=== PATIENT | female | born 1980 | race Caucasian/White ===

== ENCOUNTER 2022-01-23 16:13 | Emergency (ER) | payer OTHER, SELFPAY ==
--- NOTE | ~2022-01-23 | XR_ITS ---
EXAMINATION: XR CHEST CLINICAL INFORMATION: Chest pain. COMPARISON: 12/22/2018 chest radiographs. TECHNIQUE: 2 views of the chest were obtained. FINDINGS: No significant abnormality is noted involving the heart, lungs, mediastinum, bony thorax or soft tissues. XR/XR chest 2V IMPRESSION: No acute cardiopulmonary process.
--- NOTE | ~2022-01-23 | CT_ITS ---
EXAMINATION: CT ANGIOGRAM OF THE CHEST WITH AND WITHOUT CONTRAST (CT PULMONARY ANGIOGRAM FOR PE) CLINICAL INFORMATION: Reason for Exam elevated d dimer, cp, palpitations COMPARISON: None TECHNIQUE: Prior to contrast administration, noncontrast localization images were obtained. Subsequently, multidetector volumetric imaging was performed from the thoracic inlet to below the diaphragms following the administration of 69 mL Omnipaque 350 intravenous contrast. No contrast reaction reported Sagittal, coronal, and MIP oblique sagittal reformatted images were obtained on the CT workstation, uploaded to PACS, and reviewed. This CT examination was performed using dose optimization techniques as appropriate, variously including the following: *Automated exposure control *Adjustment of mA and/or kV according to patient size (this includes techniques or standardized protocols for targeted exams where dose is matched to indication/reason for exam; i.e. extremities or head) *Use of iterative reconstruction technique Total exam dose-length product 409 mGy-cm FINDINGS: QUALITY OF STUDY/CONTRAST BOLUS: Satisfactory. PULMONARY ARTERIES: No central or or segmental pulmonary embolus. Central pulmonary trunk is normal caliber measuring 2.4 cm in diameter. THORACIC AORTA: No aneurysm or dissection. LUNG: No airspace consolidation. No suspicious pulmonary nodule or mass. Minimal hazy dependent atelectasis. No pneumothorax. Central airways are clear. PLEURA: No pleural effusion or pneumothorax. MEDIASTINUM: No cardiomegaly or pericardial effusion. No mediastinal or hilar lymphadenopathy. No evidence of septal bowing or right heart strain. CHEST WALL/AXILLA: No axillary or internal mammary lymphadenopathy. OSSEOUS STRUCTURES: No acute or suspicious osseous abnormality. UPPER ABDOMEN: Unremarkable. No reflux of contrast into the hepatic veins to suggest elevated right heart pressures. CT/CT angio chest PE protocol IMPRESSION: 1. No evidence of pulmonary embolus. 2. No airspace consolidation or effusions. VTE: negative
--- NOTE | 2022-01-23 16:15 | ECG_ITS ---
Test Reason : PALPITATIONS Blood Pressure : / mmHG Vent. Rate : 107 BPM Atrial Rate : 107 BPM P-R Int : 126 ms QRS Dur : 096 ms QT Int : 338 ms P-R-T Axes : 063 045 022 degrees QTc Int : 451 ms Sinus tachycardia Incomplete right bundle branch block Borderline ECG When compared with ECG of 15-JUL-2019 20:26, No significant change was found Referred By: Generic ED Physician Electronically Signed By:Beot Bird
[2022-01-23 16:21] VITALS: BP 135/81; PULSE 109; RESP 20; TEMP 36.9; O2SAT 98; BMI 36.1
--- NOTE | 2022-01-23 16:51 | ED_ITS ---
HPI - Chest Pain General Chief Complaint: Chest Pain Stated Complaint: heart palpitations/dizziness Time Seen by Provider: 01/23/22 16:46 Source: patient and family Mode of arrival: ambulatory Limitations: no limitations History of Present Illness HPI narrative: 41 yo female with history of fibromyalgia, sinus tachycardia, COPD, PTSD, anxiety, GERD, seasonal allergies here with complaints of palpitations since wednesday after having covid booster shot ([employer](TM) by [employer]). Had palpitations with previous covid vaccinations. Palpitations are constant both at rest and with exertion. Feels like fluttering sensation. She is also having intermittent left sided chest pain described as sharp worsened with movement of left arm, deep breathing, movement of trunk. Chronic SOB and cough unchanged from previous. No fever, leg pain/leg swelling. Long standing history of palpitations. Has seen cardiology multiple times in the past. Had [address], recent holter 06/2021-no daily medications. No control/estrogen use +smoker No recent travel or sick contact Related Data Allergies Allergy/AdvReac Type Severity Reaction Status Date / Time amoxicillin [AMOXICILLIN] Allergy Severe RASH, SOB Unverified 04/25/20 16:15 citalopram Allergy Rash Verified 01/23/22 18:21 Penicillins Allergy Rash Verified 01/23/22 18:21 sulfamethoxazole Allergy Rash Verified 01/23/22 18:21 [From Sulfamethoxazole-Trimethoprim] trimethoprim Allergy Rash Verified 01/23/22 18:21 [From Sulfamethoxazole-Trimethoprim] From [facility] Allergy Severe CARDIAC Uncoded 04/25/20 16:15 ARREST SOME ANTIBITOCS Allergy Mild HIVES Uncoded 04/25/20 16:15 Review of Systems Review of Systems: Yes all other systems are reviewed and are negative Constitutional: Constitutional: Reports no additional constitutional complaints, Denies body ache(s), Denies chills, Denies fever(s), Denies headache(s) and Denies weakness Eyes: Eyes: Reports no additional eye complaints and Denies change in vision ENT: Reports system reviewed and no additional complaints, except as documented, Denies dizziness, Denies headache(s), Denies nasal congestion, Denies nasal discharge and Denies neck pain Cardiovascular: Cardiovascular: Reports no additional cardiovascular complaint s, Reports chest pain, Denies leg edema, Reports palpitations and Reports dyspnea Respiratory: Respiratory: Reports no additional respiratory complaints, Reports cough and Reports dyspnea Gastrointestinal: Gastrointestinal: Reports no additional gastrointestinal complaints, Denies abdominal pain, Denies diarrhea, Denies nausea and Denies vomiting Genitourinary: Genitourinary: Reports no additional female genitourinary complaints and Denies urinary incontinence Musculoskeletal: Musculoskeletal: Reports no additional musculoskeletal complaints, Denies back pain, Denies arthralgias, Denies joint swelling, Denies neck pain, Denies numbness and Denies tingling Integumentary/Breasts: Skin/Breast: Reports system reviewed and no additional complaints, except as docu and Denies rash Neurologic: Denies Abnormal speech present, Denies dizziness, Denies headache(s), Denies numbness, Denies tingling and Denies weakness Endocrine: Endocrine: Reports palpitations PMFSH Past Medical History Attestation statement: The following information was validated with the patient. Source: old records reviewed and nursing notes reviewed Social History Social History Advance Directives: No Advance Directives Information Provided: No Physical Exam Vital Signs: Vital Signs: Last Vital Signs Temp 98.4 F 01/23/22 20:00 Pulse 86 01/23/22 20:00 Resp 16 01/23/22 20:00 BP 103/60 01/23/22 20:00 Pulse Ox 98 01/23/22 20:00 O2 Del Method 01/23/22 20:00 BMI result Body Mass Index 36.1 Const: General: cooperative, healthy appearing, comfortable and no acute distress Orientation/consciousness: patient oriented x3 Limitations: no limitations HEENT: Head: Yes normal to inspection Ears: hearing grossly normal bilaterally General nose exam: Normal external nose present Face and sinus: Yes normal facial exam Mouth: Normal oral and palatal mucosa present Throat: Yes posterior oropharynx normal Eyes: General: appearance normal, both eyes and all related structures Pupils: Equal, round and reactive pupils present Neck: Neck: Yes normal visual inspection Chest: Chest palpation & inspection: normal inspection of the chest Resp: Effort & Inspection: normal respiratory effort Auscultation: clear to auscultation bilaterally Cardio: Rate: regular rate (rate 91 in room) Rhythm: regular rhythm Peripheral pulses: Peripheral pulses 2+ throughout GI: Inspection: Yes normal to inspection Palpation (GI): Soft to palpation and nontender Auscultation: normal bowel sounds Back/Spine/Pelvis: Thoracic/Lumbar Spine: thoracic and lumbar spine normal to inspection Skin: General skin exam: no rashes or lesions noted Neuro: General: patient oriented x3, no focal motor deficits and normal sensation to monofilament Cranial nerves: Yes Equal, round and reactive pupils present Cognition (Neuro): normal cognition Speech: No Abnormal speech present Gait exam (Neuro): Normal gait present Motor exam (neuro): 5/5 motor strength present throughout Extrem: General: Yes normal to inspection, Yes no pedal edema and Yes no calf tenderness Course Course Course Narrative: 1914- patient tells me she has chronic leukocytosis. This leukocytosis is unchanged from her previous per patient. I do not have any available for comparison here. Her D-dimer is elevated due to reports of pleuritic chest pain, palpitations, tachycardia due to consider PE. Will check CTA to rule out. Reevaluation(s) Reevaluation #1: CTA negative for PE. heart rate now 80s. Plan for discharge home with primary care follow-up. Reviewed worrisome signs and symptoms of when to return to the emergency department. Comfortable discharge home. Time: 21:00 MDM - Chest Pain MDM Narrative Medical decision making narrative: 41-year-old female with a longstanding history of palpitations since 2010 here with worsening palpitations since receiving a COVID vaccination booster on Wednesday. Patient also reports some intermittent sharp reproducible chest pain associated with this. Will check EKG, labs, chest x-ray - Less likely ACS with symptoms for several days with negative troponin and EKG. Differential Diagnosis Differential diagnosis: Likely atypical chest pain Differential diagnosis: pe, thyroid, myocarditis, ST Medical Records Data Attestation: I reviewed the patient's medical records. Lab Data Attestation: I reviewed the patient's lab results. Result diagrams: 01/23/22 17:22 01/23/22 18:48 Labs: Lab Results 01/23/22 01/23/22 01/23/22 Range/Units 17: 17: 17: WBC 18.6 H (4.8-10.8) X10*3/uL RBC 4.46 (4.20-5.50) X10*6/uL Hgb 12.4 (12.0-16.0) g/dl Hct 38.3 (37.0-47.0) % MCV 85.9 (80.0-98.0) fL MCH 27.8 (27.0-33.0) pg MCHC 32.4 (31.0-35.0) g/dl RDW 12.5 (11.0-16.0) % Plt Count 313 (160-400) X10*3/uL MPV 12.5 H (9.4-12.3) fL Immature Gran % (Auto) 0.4 (0.0-0.4) % Neut % (Auto) 65.7 (45-73) % Lymph % (Auto) 25.1 (20-40) % [place] % (Auto) 5.9 (2-11) % Eos % (Auto) 2.4 (0-4) % Baso % (Auto) 0.5 (0-2) % Lymph # (Auto) 4.7 (1.2-4.9) X10*3/uL [place] # (Auto) 1.1 (0.1-1.2) X10*3/uL Eos # (Auto) 0.4 (0.0-0.4) X10*3/uL Baso # (Auto) 0.1 (0.0-0.2) X10*3/uL Abs Immat Gran (auto) 0.07 H (0.00-0.03) X10*3/uL Absolute Neuts (auto) 12.2 H (2.0-8.3) x10*3/uL Absolute Nucleated RBC 0.000 (0.0-0.012) X10*3/uL Nucleated RBC % (auto) 0.0 (0.0-0.2) /100WBC PT 11.5 (9.9-13.0) SEC INR 1.0 (0.9-1.1) D-Dimer High Sensitivty 282 NG/ML Sodium (135-145) mmol/L Potassium (3.3-5.1) mmol/L Chloride (96-108) mmol/L Carbon Dioxide (22-29) mmol/L Anion Gap (12-20) BUN (9-16) mg/dL Creatinine (0.5-1.4) mg/dL Estim Creat Clear Calc Estimated GFR Random Glucose (60-115) mg/dL Calcium (8.4-10.2) mg/dL Magnesium (1.6-2.6) mg/dL Total Bilirubin (0.0-1.0) mg/dL Direct Bilirubin (0.0-0.5) mg/dL AST (5-31) U/L ALT (0-31) U/L Alkaline Phosphatase (39-117) U/L Troponin I High Sens < 3.5 (<3.5-17.0) ng/L B-Natriuretic Peptide (<100) pg/mL Total Protein (6.5-8.0) g/dL Albumin (3.5-5.0) g/dL TSH (0.32-4.0) uIU/mL Urine Test (NEGATIVE) 01/23/22 01/23/22 01/23/22 Range/Units 17:22 18:48 19:34 WBC (4.8-10.8) X10*3/uL RBC (4.20-5.50) X10*6/uL Hgb (12.0-16.0) g/dl Hct (37.0-47.0) % MCV (80.0-98.0) fL MCH (27.0-33.0) pg MCHC (31.0-35.0) g/dl RDW (11.0-16.0) % Plt Count (160-400) X10*3/uL MPV (9.4-12.3) fL Immature Gran % (Auto) (0.0-0.4) % Neut % (Auto) (45-73) % Lymph % (Auto) (20-40) % [place] % (Auto) (2-11) % Eos % (Auto) (0-4) % Baso % (Auto) (0-2) % Lymph # (Auto) (1.2-4.9) X10*3/uL [place] # (Auto) (0.1-1.2) X10*3/uL Eos # (Auto) (0.0-0.4) X10*3/uL Baso # (Auto) (0.0-0.2) X10*3/uL Abs Immat Gran (auto) (0.00-0.03) X10*3/uL Absolute Neuts (auto) (2.0-8.3) x10*3/uL Absolute Nucleated RBC (0.0-0.012) X10*3/uL Nucleated RBC % (auto) (0.0-0.2) /100WBC PT (9.9-13.0) SEC INR (0.9-1.1) D-Dimer High Sensitivty NG/ML Sodium 141 (135-145) mmol/L Potassium 4.3 (3.3-5.1) mmol/L Chloride 108 (96-108) mmol/L Carbon Dioxide 25 (22-29) mmol/L Anion Gap 12 (12-20) BUN 8 L (9-16) mg/dL Creatinine 0.69 (0.5-1.4) mg/dL Estim Creat Clear Calc 108.3 Estimated GFR > 60 Random Glucose 106 (60-115) mg/dL Calcium 9.0 (8.4-10.2) mg/dL Magnesium 1.8 (1.6-2.6) mg/dL Total Bilirubin 0.3 (0.0-1.0) mg/dL Direct Bilirubin < 0.2 (0.0-0.5) mg/dL AST 13 (5-31) U/L ALT 17 (0-31) U/L Alkaline Phosphatase 107 (39-117) U/L Troponin I High Sens (<3.5-17.0) ng/L B-Natriuretic Peptide 16 (<100) pg/mL Total Protein 6.7 (6.5-8.0) g/dL Albumin 3.8 (3.5-5.0) g/dL TSH 1.16 (0.32-4.0) uIU/mL Urine Test NEGATIVE (NEGATIVE) Imaging Data Chest x-ray: Attestation: I personally reviewed and interpreted this imaging study as follows: Radiologist's impression: [address] [address] XRay Report Signed Patient: Jessy Jiménez MR#: [id number] : 1980 Acct:[id number] Age/Sex: 41 / F ADM Date: 01/23/22 Loc: .ED Attending Dr: Ordering Physician: Elsa Christianson NP Date of Service: 01/23/22 Procedure(s): XR chest 2V Accession Number(s): [id number] cc: MeghanElsa ESTIMATE CLERK~ EXAMINATION: XR CHEST CLINICAL INFORMATION: Chest pain. COMPARISON: 12/22/2018 chest radiographs. TECHNIQUE: 2 views of the chest were obtained. FINDINGS: No significant abnormality is noted involving the heart, lungs, mediastinum, bony thorax or soft tissues. XR/XR chest 2V IMPRESSION: No acute cardiopulmonary process. . CT scan - chest: Attestation: I personally reviewed and interpreted this imaging study as follows: Radiologist's impression: FINDINGS: QUALITY OF STUDY/CONTRAST BOLUS: Satisfactory. PULMONARY ARTERIES: No central or or segmental pulmonary embolus. Central pulmonary trunk is normal caliber measuring 2.4 cm in diameter. THORACIC AORTA: No aneurysm or dissection. LUNG: No airspace consolidation. No suspicious pulmonary nodule or mass. Minimal hazy dependent atelectasis. No pneumothorax. Central airways are clear. PLEURA: No pleural effusion or pneumothorax. MEDIASTINUM: No cardiomegaly or pericardial effusion. No mediastinal or hilar lymphadenopathy.? No evidence of septal bowing or right heart strain. CHEST WALL/AXILLA: No axillary or internal mammary lymphadenopathy. OSSEOUS STRUCTURES: No acute or suspicious osseous abnormality.? UPPER ABDOMEN: Unremarkable.? No reflux of contrast into the hepatic veins to suggest elevated right heart pressures. CT/CT angio chest PE protocol IMPRESSION: ? 1. No evidence of pulmonary embolus. 2. No airspace consolidation or effusions. ? VTE: negative ECG Data ECG #1: Attestation: I personally reviewed and interpreted this ECG as follows: ECG interpretation date: 01/23/22 ECG interpretation time: 16:16 Interpretation: St with rate of 107. normal pr, normal qrs, normal qt Discharge Plan Discharge Clinical Impression: Atypical chest pain, Sinus tachycardia Patient Disposition: Home, Self-Care Instructions: Chest Wall Pain (ED), Tachycardia (ED) Additional Instructions: Your lab work, EKG, CT of your chest are all very reassuring. Change positions slowly Increase fluids, rest Follow-up with cardiology Referrals: Beto Bird MD [Physician] - 2 weeks Elba Fontana MD [Primary Care Provider] - 1 week Interventions: ED Discharge Assessment Last Done: 01/23/22 20:18 Discharge Date/Time: 01/23/22 20:19
[2022-01-23] MEDS: 0.9 % Sodium Chloride 1,000 ML 999 ML IV (17:25)
[2022-01-23 18:00] VITALS: BP 128/67; PULSE 95; RESP 18; TEMP 37.1; O2SAT 100
[2022-01-23 18:27] LABS: MANUAL DIFF FLAG NO
[2022-01-23 18:31] LABS: Basophils Absolute Auto 0.1 X10*3/uL (0.0-0.2); Basophils Percent Auto 0.5 % (0-2); Eosinophils Absolute Auto 0.4 X10*3/uL (0.0-0.4); Eosinophils Percent Auto 2.4 % (0-4); Hematocrit 38.3 % (37.0-47.0); Hemoglobin 12.4 g/dl (12.0-16.0); Imm Gran Abs Auto 0.07 X10*3/uL (0.00-0.03); Imm Gran Pct Auto 0.4 % (0.0-0.4); Lymphocytes Absolute Auto 4.7 X10*3/uL (1.2-4.9); Lymphocytes Percent Auto 25.1 % (20-40); Mean Corpuscular HGB Conc 32.4 g/dl (31.0-35.0); Mean Corpuscular Hemoglobin 27.8 pg (27.0-33.0); Mean Corpuscular Volume 85.9 fL (80.0-98.0); Mean Platelet Volume 12.5 fL (9.4-12.3); Monocytes Absolute Auto 1.1 X10*3/uL (0.1-1.2); Monocytes Percent Auto 5.9 % (2-11); Neutrophils Absolute Auto 12.2 x10*3/uL (2.0-8.3); Neutrophils Percent Auto 65.7 % (45-73); Platelet Count 313 X10*3/uL (160-400); Red Blood Count 4.46 X10*6/uL (4.20-5.50); Red Cell Distribution Width 12.5 % (11.0-16.0); White Blood Count 18.6 X10*3/uL (4.8-10.8)
[2022-01-23 18:36] LABS: Prothrombin Time 11.5 SEC (9.9-13.0)
[2022-01-23 18:38] LABS: D Dimer High Sensitivity 282 NG/ML
[2022-01-23 18:50] LABS: B Type Natriuretic Peptide 16 pg/mL (<100)
[2022-01-23 18:51] LABS: Troponin-I High Sensitivity < 3.5 ng/L (<3.5-17.0)
[2022-01-23 19:11] LABS: Alanine Aminotransferase 17 U/L (0-31); Albumin Level 3.8 g/dL (3.5-5.0); Alkaline Phosphatase 107 U/L (39-117); Anion Gap 12 (12-20); Aspartate Amino Transferase 13 U/L (5-31); Bilirubin Direct < 0.2 mg/dL (0.0-0.5); Bilirubin Total 0.3 mg/dL (0.0-1.0); Blood Urea Nitrogen 8 mg/dL (9-16); Carbon Dioxide 25 mmol/L (22-29); Chloride 108 mmol/L (96-108); Creatinine Clr Calc Pharmacy 108.3; Estimated Glomerular Filt Rate > 60; Glucose Random 106 mg/dL (60-115); Magnesium 1.8 mg/dL (1.6-2.6); Potassium 4.3 mmol/L (3.3-5.1); Sodium 141 mmol/L (135-145); Total Protein 6.7 g/dL (6.5-8.0)
[2022-01-23 19:31] LABS: Thyroid Stimulating Hormone 1.16 uIU/mL (0.32-4.0)
[2022-01-23] MEDS: iohexoL 350 MG/ML 100 ML INFUS..BTL IV (19:35)
[2022-01-23 19:45] LABS: UPreg QC Valid YES; Urine Pregnancy NEGATIVE (NEGATIVE)
[2022-01-23 20:00] VITALS: BP 103/60; PULSE 86; RESP 16; TEMP 36.9; O2SAT 98
--- NOTE | 2022-01-23 20:05 | PC.NURSE ---
Pt A+Ox3, urine sample sent to lab, Pt resting, call light in reach, this RN continues to monitor.
== END 2022-01-23 20:19 | disposition home or self-care (01) ==
PROVIDERS: Nurse Practitioner Family; Emergency Provider Emergency Medicine; PCP Internal Medicine
DX: R07.89 Other chest pain (principal); R00.0 Tachycardia, unspecified; R79.1 Abnormal coagulation profile; J44.9 Chronic obstructive pulmonary disease, unspecified
CPT/HCPCS: 36415; 71046; 71275; 80048; 80076; 81025; 83735; 83880; 84443; 84484; 85025; 85379; 85610; 93005; 96360; 99284; Q9967

== ENCOUNTER → 2022-03-17 13:57 | Outpatient (BNVA) | payer OTHER, SELFPAY | PROVIDERS: PCP Internal Medicine; Referring Provider Internal Medicine; Visit Provider Nurse Practitioner Family | DX: R00.2 Palpitations (principal); R07.89 Other chest pain; F17.210 Nicotine dependence, cigarettes, uncomplicated; Z79.899 Other long term (current) drug therapy | CPT/HCPCS: 99202 ==

== ENCOUNTER 2022-04-01 22:27 | Emergency (ER) | payer OTHER, SELFPAY ==
[2022-04-01 22:38] VITALS: BP 136/85; PULSE 97; RESP 18; TEMP 36.6; O2SAT 97; BMI 34.5
--- NOTE | 2022-04-01 22:41 | ECG_ITS ---
Test Reason : CHEST PAIN Blood Pressure : / mmHG Vent. Rate : 100 BPM Atrial Rate : 100 BPM P-R Int : 126 ms QRS Dur : 096 ms QT Int : 348 ms P-R-T Axes : 069 049 010 degrees QTc Int : 448 ms Normal sinus rhythm Incomplete right bundle branch block Borderline ECG When compared with ECG of 23-JAN-2022 16:16, No significant change was found Referred By: Generic ED Physician Electronically Signed By:KLAUS PEREZ
--- NOTE | 2022-04-02 07:29 | ED_ITS ---
HPI - General Adult General Chief complaint: Allergic Reaction Stated complaint: ?allergic reaction to med, hives dif. breathing Time Seen by Provider: 04/02/22 07:13 Source: patient Mode of arrival: ambulatory Limitations: no limitations History of Present Illness HPI narrative: 41-year-old female who presents emergency department for evaluation headache, abdominal pain, she to right right arm and vomiting the emesis. Patient states she has been sick for 5 days. She states that she noted a lesion on her right neck and right arm which she thought was possibly due to a spider bite. She states that her right neck area is swollen and painful to the touch. She states that she has had a intermittent, pressure-like headache and abdominal cramping. She states the abdominal cramping is diffuse, constant but waxes wanes in intensity and is 8/10 at its worst. She states that she is able to eat and drink without any difficulty. She states that she has had nausea and has had at least 7 episodes of vomiting since the onset of her symptoms she states she did vomit last night and it was mainly food particles with some small amount of blood at the end the vomiting. She has not noticed any dark tarry stools or bright red blood per rectum. Patient was seen in urgent care clinic and started on doxycycline for the lesion on her neck and she was told that she may have had a spider bite. She states since starting the doxycycline she has felt worse, her abdominal pain is got worse and she has been vomiting more. Related Data Home Medications Medication Instructions Recorded Confirmed albuterol sulfate 90 mcg/actuation inhalation 03/17/22 03/17/22 aerosol inhaler (ProAir HFA) loratadine 10 mg tablet (Claritin) 10 mg PO DAILY 03/17/22 03/17/22 lorazepam 0.5 mg tablet 0.5 mg PO BID PRN 03/17/22 03/17/22 topiramate 25 mg tablet 12.5 mg PO 03/17/22 03/17/22 triamcinolone acetonide 55 mcg 1 spray intranasal DAILY 03/17/22 03/17/22 nasal spray aerosol (Nasacort Allergy) Previous Rx's Medication Instructions Recorded ondansetron 4 mg disintegrating 4 mg PO Q6-8H PRN nausea and 04/02/22 tablet vomiting #14 tabs Allergies Allergy/AdvReac Type Severity Reaction Status Date / Time amoxicillin [AMOXICILLIN] Allergy Severe RASH, SOB Verified 03/17/22 13:59 citalopram Allergy Rash Verified 03/17/22 13:59 Penicillins Allergy Rash Verified 03/17/22 13:59 sulfamethoxazole Allergy Rash Verified 03/17/22 13:59 [From Sulfamethoxazole-Trimethoprim] trimethoprim Allergy Rash Verified 03/17/22 13:59 [From Sulfamethoxazole-Trimethoprim] From ZOLOFT Allergy Severe CARDIAC Uncoded 04/25/20 16:15 ARREST SOME ANTIBITOCS Allergy Mild HIVES Uncoded 04/25/20 16:15 Review of Systems Review of Systems: Yes all other systems are reviewed and are negative [facility] Past Medical History [facility] Narrative: Past medical history: COPD, anxiety, fibromyalgia, elevated white blood cell count, fatty liver disease. Past surgical history: in 2001, bilateral tubal ligation. Social history: The patient smokes 1-2 packs of cigarettes per day times 20 years. She denies alcohol use. She denies drug use. Medical History delivery delivered Vaginal hernia Surgical History History of tubal ligation Family History Family History Mother Uterine cancer Fibromyalgia Acute arthritis Anxiety PTSD (post-traumatic stress disorder) Depression Father Alcohol abuse Social History Social History Alcohol intake: never Tobacco use type: Cigarette Cigarette Packs Per Day: 1.5 Advance Directives: No Advance Directives Information Provided: Yes Physical Exam ED Vital Signs: Vital Signs - 24 hr 04/01/22 22:38 04/02/22 07:46 04/02/22 09:51 Temperature 97.8 F 98.3 F Pulse Rate 97 90 80 Respiratory Rate 18 16 21 H Blood Pressure 136/85 124/70 107/71 Pulse Oximetry 97 98 97 Oxygen Delivery Method Room Air Room Air Room Air BMI result Body Mass Index 34.5 Const General: cooperative and no acute distress Orientation/consciousness: oriented to person and oriented to place Limitations: no limitations HENMT Head: Yes normal to inspection, Yes normocephalic and Yes atraumatic Ears: external ears normal General nose exam: Normal external nose present Face and sinus: Yes normal facial exam Mouth: Normal oral and palatal mucosa present Throat: Yes posterior oropharynx normal Eyes General: appearance normal, both eyes and all related structures Pupils: Equal, round and reactive pupils present Neck Neck: Yes normal visual inspection, Yes no lymphadenopathy, Yes trachea midline and Yes supple Chest Chest palpation & inspection: normal inspection of the chest and normal palpation of entire chest wall Resp Effort & Inspection: normal respiratory effort and able to speak in complete sentences Auscultation: clear to auscultation bilaterally Cardio Rate: regular rate Rhythm: regular rhythm Heart sounds: S1 normal heart sound present, S2 normal heart sound present and no murmurs GI Inspection: Yes normal to inspection Palpation (GI): Soft to palpation, Tenderness to palpation present (GI) (Diffuse abdominal tenderness) and no guarding Auscultation: normal bowel sounds General: Yes no CVA tenderness Back/Spine/Pelvis Back: no CVA tenderness Skin Other: Less than 1 cm circular lesion to the right neck, no significant surrounding erythema , no flocculence, appears to be injury. Erythematous raised lesion 0.5 cm, circular right antecubital fossa, does not molly with pressure Neuro General: oriented to person and oriented to place Cranial nerves: Yes CN's II-XII intact bilaterally and Yes Equal, round and reactive pupils present Cognition (Neuro): normal cognition Motor exam (neuro): 5/5 motor strength present throughout Extrem General: Yes normal to inspection Psych Appearance: grossly normal Speech and movement: Normal speech and movement present Affect: normal affect Attitude: cooperative Thought process: Normal thought process present Thought content: Normal thought content present Course Course Course Narrative: 41-year-old female who presents emergency department for evaluation right-sided neck and right arm lesion which is painful, headache, abdominal cramping, nausea, vomiting x5 days, started on doxycycline 2 days prior for possible infected insect bite. Patient has had multiple episodes of emesis was 1 episode of emesis last night that had a small amount of blood at the end of vomiting. Patient's physical examination did reveal 2 lesions 1 on her right neck and on her right arm that revealed fossa area that do not appear infected, these are probably insect bites. I did discuss this with the patient. She does have diffuse abdominal tenderness and had nausea vomiting therefore I ordered a laboratory evaluation, Morris Dunn mg IV and normal saline x1 L. The patient was also given oxycodone 10 mg orally for her headache and abdominal pain . The patient does have a history of elevated WBC and her white blood cell count was elevated 14,500 otherwise her labs were unremarkable. COVID-19 was negative. Patient did get improvement with the above treatment. She was advised to stop taking the doxycycline. She was advised to use antibiotic ointment and heat to the area she was given printed and verbal instructions and discharged home Medical Decision Making Lab Data Result diagrams: 04/02/22 08:29 04/02/22 08:29 Labs: Lab Results 04/02/22 04/02/22 04/02/22 Range/Units 07:49 08:29 08:29 WBC 14.5 H (4.8-10.8) X10*3/uL RBC 4.57 (4.20-5.50) X10*6/uL Hgb 12.5 (12.0-16.0) g/dl Hct 38.1 (37.0-47.0) % MCV 83.4 (80.0-98.0) fL MCH 27.4 (27.0-33.0) pg MCHC 32.8 (31.0-35.0) g/dl RDW 12.6 (11.0-16.0) % Plt Count 275 (160-400) X10*3/uL MPV 11.9 (9.4-12.3) fL Immature Gran % (Auto) 0.3 (0.0-0.4) % Neut % (Auto) 59.4 (45-73) % Lymph % (Auto) 29.0 (20-40) % Davison % (Auto) 7.2 (2-11) % Eos % (Auto) 3.5 (0-4) % Baso % (Auto) 0.6 (0-2) % Lymph # (Auto) 4.2 (1.2-4.9) X10*3/uL Davison # (Auto) 1.1 (0.1-1.2) X10*3/uL Eos # (Auto) 0.5 H (0.0-0.4) X10*3/uL Baso # (Auto) 0.1 (0.0-0.2) X10*3/uL Abs Immat Gran (auto) 0.04 H (0.00-0.03) X10*3/uL Absolute Neuts (auto) 8.6 H (2.0-8.3) x10*3/uL Absolute Nucleated RBC 0.000 (0.0-0.012) X10*3/uL Nucleated RBC % (auto) 0.0 (0.0-0.2) /100WBC Sodium 138 (135-145) mmol/L Potassium 4.1 (3.3-5.1) mmol/L Chloride 103 (96-108) mmol/L Carbon Dioxide 26 (22-29) mmol/L Anion Gap 13 (12-20) BUN 7 L (9-16) mg/dL Creatinine 0.70 (0.5-1.4) mg/dL Estim Creat Clear Calc 104.3 Estimated GFR > 60 Random Glucose 99 (60-115) mg/dL Calcium 9.2 (8.4-10.2) mg/dL Total Bilirubin 0.6 (0.0-1.0) mg/dL AST 16 (5-31) U/L ALT 18 (0-31) U/L Alkaline Phosphatase 101 (39-117) U/L Total Protein 6.6 (6.5-8.0) g/dL Albumin 3.8 (3.5-5.0) g/dL Lipase 15 (8-78) U/L COVID-19 ([facility]) Negative (Negative) COVID-19 Clin Com See Note Discharge Plan Discharge Clinical Impression: Insect bite Qualifiers: Encounter type: initial encounter Site of insect bite: other part of neck Qualified Code(s): S10.86XA - Insect bite of other specified part of neck, i nitial encounter Abdominal pain Qualifiers: Abdominal location: generalized Qualified Code(s): R10.84 - Generalized a bdominal pain Vomiting Qualifiers: Nausea presence: with nausea Patient Disposition: Home, Self-Care Instructions: Abdominal Pain (ED) Additional Instructions: The wound on your neck and arm are consistent with an insect bite. I do not think need an antibiotic for this time and I do not think the have an abscess at this time Apply heating pad on low for 15 minutes to your neck and right arm do this 4 to 6 times a day. This will increase the blood flow to the area and how fight off any superficial infection. Take ibuprofen 200 mg pills, 3 pills every 6 hours as needed for pain. Take Tylenol (acetaminophen) 500 mg pills, 2 pills every 4 to 6 hours as needed for pain. Take Zofran ODT 4 mg pills, 1 pill dissolved in your mouth every 8 hours as needed for nausea and vomiting. Follow-up with your doctor in 2 days. Please return to the emergency department if your symptoms get worse or if you develop any symptoms that are concerning to you. Your blood work [place] [id number]. Your liver tests were normal which is also reassuring. Prescriptions: New ondansetron 4 mg tablet,disintegrating 4 mg PO Q6-8H PRN (Reason: nausea and vomiting) Qty: 14 0RF No Action lorazepam 0.5 mg tablet 0.5 mg PO BID PRN albuterol sulfate [ProAir HFA] 90 mcg/actuation HFA aerosol inhaler inhalation topiramate 25 mg tablet 12.5 mg PO loratadine [Claritin] 10 mg tablet 10 mg PO DAILY triamcinolone acetonide [Nasacort Allergy] 55 mcg aerosol,spray 1 spray intranasal DAILY Rx Instructions: administer into each nostril
[2022-04-02 07:46] VITALS: BP 124/70; PULSE 90; RESP 16; O2SAT 98
[2022-04-02 08:07] LABS: COVID-19 Test Negative (Negative); IDNOW Serial# 9DB6401D
[2022-04-02 08:33] LABS: MANUAL DIFF FLAG NO
[2022-04-02] MEDS: ondansetron HCL 4 MG/2 ML VIAL IVPUSH (08:34)
[2022-04-02] MEDS: 0.9 % Sodium Chloride 1,000 ML 999 ML IV (08:34)
[2022-04-02 08:38] LABS: Basophils Absolute Auto 0.1 X10*3/uL (0.0-0.2); Basophils Percent Auto 0.6 % (0-2); Eosinophils Absolute Auto 0.5 X10*3/uL (0.0-0.4); Eosinophils Percent Auto 3.5 % (0-4); Hematocrit 38.1 % (37.0-47.0); Hemoglobin 12.5 g/dl (12.0-16.0); Imm Gran Abs Auto 0.04 X10*3/uL (0.00-0.03); Imm Gran Pct Auto 0.3 % (0.0-0.4); Lymphocytes Absolute Auto 4.2 X10*3/uL (1.2-4.9); Mean Corpuscular HGB Conc 32.8 g/dl (31.0-35.0); Mean Corpuscular Hemoglobin 27.4 pg (27.0-33.0); Mean Corpuscular Volume 83.4 fL (80.0-98.0); Mean Platelet Volume 11.9 fL (9.4-12.3); Monocytes Absolute Auto 1.1 X10*3/uL (0.1-1.2); Monocytes Percent Auto 7.2 % (2-11); Neutrophils Absolute Auto 8.6 x10*3/uL (2.0-8.3); Neutrophils Percent Auto 59.4 % (45-73); Platelet Count 275 X10*3/uL (160-400); Red Blood Count 4.57 X10*6/uL (4.20-5.50); Red Cell Distribution Width 12.6 % (11.0-16.0); White Blood Count 14.5 X10*3/uL (4.8-10.8)
[2022-04-02 08:49] LABS: Alanine Aminotransferase 18 U/L (0-31); Albumin Level 3.8 g/dL (3.5-5.0); Alkaline Phosphatase 101 U/L (39-117); Anion Gap 13 (12-20); Aspartate Amino Transferase 16 U/L (5-31); Bilirubin Total 0.6 mg/dL (0.0-1.0); Blood Urea Nitrogen 7 mg/dL (9-16); Calcium 9.2 mg/dL (8.4-10.2); Carbon Dioxide 26 mmol/L (22-29); Chloride 103 mmol/L (96-108); Creatinine Clr Calc Pharmacy 104.3; Estimated Glomerular Filt Rate > 60; Glucose Random 99 mg/dL (60-115); Lipase 15 U/L (8-78); Potassium 4.1 mmol/L (3.3-5.1); Sodium 138 mmol/L (135-145); Total Protein 6.6 g/dL (6.5-8.0)
[2022-04-02 09:45] LABS: Appearance Urine Clear; Color Urine Yellow; Glucose Urine UA Negative (Negative); Leukocyte Esterase Urine Small (1+) (Negative); Nitrite Urine Negative (Negative); PH 6.5 (5.0-8.0); Specific Gravity - Urine 1.015 (1.005-1.025); Urine Blood Negative (Negative); Urine Ketones Negative (Negative); Urine Protein Negative (Neg-Trace)
[2022-04-02 09:51] VITALS: BP 107/71; PULSE 80; RESP 21; TEMP 36.8; O2SAT 97
[2022-04-02 09:58] LABS: Bacteria Urine Trace (None Seen); Hyaline Casts Urine 0-2 /LPF (0-2); RBC Urine 0-2 /HPF (0-2); UACC Culture Trigger YES; WBC Urine 0-5 /HPF (0-5)
== END 2022-04-02 10:56 | disposition home or self-care (01) ==
PROVIDERS: Emergency Provider Emergency Medicine Emergency Medical Services; PCP Internal Medicine
DX: S10.86XA Insect bite of other specified part of neck, initial encounter (principal); W57.XXXA Bitten or stung by nonvenomous insect and other nonvenomous arthropods, initial encounter; R10.84 Generalized abdominal pain; R11.2 Nausea with vomiting, unspecified; Y93.9 Activity, unspecified; Y92.9 Unspecified place or not applicable; Y99.9 Unspecified external cause status; Z20.822 Contact with and (suspected) exposure to COVID-19; F17.210 Nicotine dependence, cigarettes, uncomplicated
CPT/HCPCS: 80053; 81001; 83690; 85025; 87086; 87635; 93005; 96361; 96374; 99284; J2405

== ENCOUNTER → 2022-06-22 09:44 | Outpatient (REF) | payer OTHER, SELFPAY ==
--- NOTE | 2022-06-22 09:49 | CA_ITS ---
Acquisition Time: 2022-06-22 10:26:08 Total Exercise Time: 00:02:36 Test Indications: CP Medications: SEE CHART Protocol: JACLYN Max HR: 171 BPM 95% of Pred: 179 BPM Max BP: 160/052 mmHG Max Work Load: 4.6 METS Exercise stress test with exercise 2 min 36 sec of Jaclyn protocol, achieving 96% MPHR ( reaching 85% MPHR with 1 min of walking), with moderate shortness of breath of breath and 5/10 anterior chest tightness, without arrythmia, with normotensive response to exercise, without EKG changes meeting criteria for ischemia. In recovery her breathing improved and chest tightness resolved. Test reviewed with Dr Santos. Pt reports that her baseline physical activity is very limited due to fibromylagia. Will order a pharmacological nuclear stress test for further evaluation. Referred By: Ellie Perez Overread By: ELLIE PEREZ
--- NOTE | 2022-06-22 09:49 | HM_ITS ---
Conclusion: 1. Patient was monitored for total period of 2 days and 21 hours 2. Baseline was normal sinus rhythm with average heart rate of 93 beats per minute 3. No significant pauses or bradycardia noted 4. No significant tachyarrhythmias noted 5. No patient reported symptoms MTDD
== END ==
LOC: HO.CARD 09:44
PROVIDERS: Visit Provider Nurse Practitioner Family
DX: R00.2 Palpitations (principal); R07.89 Other chest pain
CPT/HCPCS: 93017; 93242

== ENCOUNTER → 2022-07-15 09:50 | Outpatient (REF) | payer OTHER, SELFPAY ==
--- NOTE | ~2022-07-15 | NM_ITS ---
Myocardial perfusion study Indication: Abnormal stress test evaluate for myocardial ischemia Technique: The patient was brought in for a Lexiscan perfusion study on 07/15/2022. Patient performed low-level exercise and was injected 0.4 mg of Lexiscan intravenously. Within a minute of injection, 30 mCi of sestamibi was given intravenously. Images were obtained using the SPECT gamma camera interlaced with the gating device. Images were obtained in supine position. Resting perfusion study was performed on 07/16/2022. Patient was administered 30 mCi of sestamibi intravenously at rest. Images were then obtained in supine position. Images obtained with and without CT attenuation. Total DLP 105 mGy-cm Images were processed with the software and compared side to side in short axis, horizontal long axis and vertical long axis views. Findings: Both rest and stress perfusion images are suboptimal due to intense subdiaphragmatic uptake interfering with inferior wall uptake. The stress perfusion study showed both attenuated as well as non attenuated images show overall uniform uptake in all segments of LV myocardium with reduced confidence of interpretation due to the inferior wall. The gated study shows normal LV systolic function with calculated LVEF of greater than 70%. LV cavity is normal in size. The gated study shows normal systolic wall thickening and contraction of segments. Resting study shows no clear change in perfusion study. Gating at rest reveals normal systolic wall motion with ejection fraction at 55%. The findings are consistent with likely normal myocardial perfusion with low confidence of interpretation due to inferior wall interference by subdiaphragmatic uptake. NM/NM daniel perf SPECT rest & str Impression: 1. Myocardial perfusion imaging study shows likely normal myocardial perfusion 2. Gated LVEF is 55% 3. Transient ischemic dilatation not present EKG is nondiagnostic for ischemia
--- NOTE | 2022-07-15 09:53 | CA_ITS ---
Acquisition Time: 2022-07-15 10:05:25 Total Exercise Time: 00:02:00 Test Indications: Dyspnea CP Medications: LORATADINE TOPIRAMATE ALBUTEROL LORAZAPAM Protocol: LEXISCAN Max HR: 150 BPM 83% of Pred: 179 BPM Max BP: 118/068 mmHG Max Work Load: 1.0 METS Pharmacological stress test with Lexiscan injection, while sitting and kicking her legs, without anginal symptoms, without arrythmia, with normotensive response to injection, with nondiagnostic EKG for ischemia. In recovery she was treated with Aminophylline 75mg IVP to reverse Lexiscan. Nuclear images pending. Test reviewed with Dr Santos Referred By: Ellie Perez Overread By: ELLIE PEREZ
== END ==
LOC: HO.CARD 09:50
PROVIDERS: Visit Provider Nurse Practitioner Family
DX: R94.39 Abnormal result of other cardiovascular function study (principal); R07.9 Chest pain, unspecified
CPT/HCPCS: 78452; 93017; A9500; J0280; J2785

== ENCOUNTER 2022-11-20 20:55 | Emergency (ER) | payer OTHER, SELFPAY ==
--- NOTE | 2022-11-20 | ECG_ITS ---
Test Reason : CHEST PAIN Blood Pressure : / mmHG Vent. Rate : 100 BPM Atrial Rate : 100 BPM P-R Int : 124 ms QRS Dur : 098 ms QT Int : 352 ms P-R-T Axes : 061 048 017 degrees QTc Int : 454 ms Normal sinus rhythm Incomplete right bundle branch block Borderline ECG When compared with ECG of 02-APR-2022 00:19, No significant change was found Referred By: Tim Wahl Electronically Signed By:NELLIE TAI MD
--- NOTE | ~2022-11-20 | CT_ITS ---
EXAMINATION: CT ANGIOGRAM OF THE CHEST WITH AND WITHOUT CONTRAST (CT PULMONARY ANGIOGRAM FOR PE) CLINICAL INFORMATION: Reason for Exam CP SOB , + dimer COMPARISON: 01/23/2022 TECHNIQUE: Prior to contrast administration, noncontrast localization images were obtained. Subsequently, multidetector volumetric imaging was performed from the thoracic inlet to below the diaphragms following the administration of 85 mL Omnipaque 350 intravenous contrast. No contrast reaction reported Sagittal, coronal, and MIP oblique sagittal reformatted images were obtained on the CT workstation, uploaded to PACS, and reviewed. This CT examination was performed using dose optimization techniques as appropriate, variously including the following: *Automated exposure control *Adjustment of mA and/or kV according to patient size (this includes techniques or standardized protocols for targeted exams where dose is matched to indication/reason for exam; i.e. extremities or head) *Use of iterative reconstruction technique Total exam dose-length product 316 mGy-cm FINDINGS: QUALITY OF STUDY/CONTRAST BOLUS: Satisfactory. PULMONARY ARTERIES: No pulmonary emboli. THORACIC AORTA: No aneurysm. LUNG: No focal consolidation, nodules or masses. The central airways are patent. PLEURA: No pleural effusion or pneumothorax. MEDIASTINUM: Normal heart size. No pericardial effusion. No hilar or mediastinal lymphadenopathy. No evidence of septal bowing or right heart strain. CORONARY ARTERY CALCIFICATION: None visualized on this study. CHEST WALL/AXILLA: No axillary or internal mammary lymphadenopathy. OSSEOUS STRUCTURES: No acute or suspicious osseous abnormality. UPPER ABDOMEN: Unremarkable. No reflux of contrast into the hepatic veins to suggest elevated right heart pressures. CT/CT angio chest PE protocol IMPRESSION: No pulmonary embolism or other acute intrathoracic abnormality. VTE: negative
--- NOTE | ~2022-11-20 | XR_ITS ---
EXAMINATION: XR CHEST CLINICAL INFORMATION: Short of breath COMPARISON: 01/23/2022 TECHNIQUE: 2 views of the chest were obtained. FINDINGS: The lungs are well expanded. There is no focal consolidation, edema, or effusion. No pneumothorax. The cardiomediastinal silhouette is within normal limits. No acute osseous abnormality. XR/XR chest 2V IMPRESSION: Clear lungs.
[2022-11-20 21:46] VITALS: BP 132/80; PULSE 98; RESP 18; TEMP 36.2; O2SAT 98; BMI 36.4
[2022-11-20 22:40] LABS: IDNOW Serial# 08D9AD1C; Influenza A Negative (Negative); Influenza B2 Negative (Negative)
[2022-11-20 22:41] LABS: COVID-19 Test Negative (Negative); IDNOW Serial# 9DB6401D
[2022-11-20 23:52] VITALS: BP 111/72; PULSE 104; RESP 18; O2SAT 96
--- NOTE | 2022-11-21 | PC.NURSE ---
Pt now c/o intermittent chest pain, non radiating. Chest pain worsens with cough and has been ongoing X 2-3 days, rated 7/10. Has experienced similar pain in the past and is currently undergoing evaluation with a fireman for palpitations. Was diagnosed with bronchitis approx 2 weeks ago at and started prednisone, z-moira, and albuterol MDI. Pt is unsure that symptoms have improved to date. Denies fever, recent trauma, and any travel. Does have known history of COPD.
--- NOTE | 2022-11-21 00:18 | ED.URI ---
HPI - URI/Sore Throat General Chief Complaint: Upper Respiratory Symptoms Stated Complaint: SOB Time Seen by Provider: 11/21/22 00:18 Source: patient Mode of arrival: ambulatory Limitations: no limitations History of Present Illness HPI Narrative: This is a 42-year-old female presenting for evaluation of persistent cough, fatigue, malaise, chest pain, shortness of breath, vomiting over a week. Patient reports she was recently diagnosed with acute bronchitis and was treated with a Z-Dieter as well as prednisone but despite this her cough has worsened. And now she is feeling substernal nonradiating chest pressure with some associated shortness of breath. Shortness of breath is present when she coughs. Denies headache, vision changes, dizziness, nausea, vomiting, abdominal pain, weakness. Eating and drinking well. Related Data Home Medications Medication Instructions Recorded Confirmed albuterol sulfate 90 mcg/actuation inhalation 03/17/22 03/17/22 aerosol inhaler (ProAir HFA) loratadine 10 mg tablet (Claritin) 10 mg PO DAILY 03/17/22 03/17/22 lorazepam 0.5 mg tablet 0.5 mg PO BID PRN 03/17/22 03/17/22 topiramate 25 mg tablet 12.5 mg PO 03/17/22 03/17/22 triamcinolone acetonide 55 mcg 1 spray intranasal DAILY 03/17/22 03/17/22 nasal spray aerosol (Nasacort Allergy) Previous Rx's Medication Instructions Recorded ondansetron 4 mg disintegrating 4 mg PO Q6-8H PRN nausea and 04/02/22 tablet vomiting #14 tabs albuterol sulfate 90 mcg/actuation 2 inh inhalation Q4-6H PRN 11/21/22 breath activated powder inhaler shortness of breath or wheezing #1 ea cefuroxime axetil 500 mg tablet 500 mg PO BID #20 tabs 11/21/22 ondansetron 4 mg disintegrating 4 mg PO Q6H PRN nausea and 11/21/22 tablet vomiting #14 tabs prednisone 20 mg tablet 40 mg PO DAILY 5 days #10 tabs 11/21/22 Allergies Allergy/AdvReac Type Severity Reaction Status Date / Time amoxicillin [AMOXICILLIN] Allergy Severe RASH, SOB Verified 03/17/22 13:59 citalopram Allergy Rash Verified 03/17/22 13:59 Penicillins Allergy Rash Verified 03/17/22 13:59 sulfamethoxazole Allergy Rash Verified 03/17/22 13:59 [From Sulfamethoxazole-Trimethoprim] trimethoprim Allergy Rash Verified 03/17/22 13:59 [From Sulfamethoxazole-Trimethoprim] From ZOLOFT Allergy Severe CARDIAC Uncoded 04/25/20 16:15 ARREST SOME ANTIBITOCS Allergy Mild HIVES Uncoded 04/25/20 16:15 Review of Systems Review of Systems: Constitutional : No Weight loss, No Fever, No Chills, + Fatigue, + Malaise ENT/Mouth : No sore throat, No Rhinorrhea Eyes: No Eye Pain, No Swelling, No Redness Cardiovascular : + Chest Pain, + SOB, No Dyspnea on Exertion, No Orthopnea, No Edema, No Palpitations Respiratory : + Cough, No Sputum, No Wheezing Gastrointestinal : + Nausea, + Vomiting, No Diarrhea, No Constipation, No abdominal Pain, No Hematochezia, No Melena Genitourinary : No Dysuria, No Urinary Frequency, No Hematuria, Musculoskeletal : No joint pain, No Myalgias, No Joint Swelling Skin : No Skin Lesions, No rash Neuro : No Weakness, No Numbness, No Dizziness, No Headache Psych : No Anxiety/Panic, No Depression All other systems reviewed and are negative Yes all other systems are reviewed and are negative [facility] Past Medical History Attestation statement: The following information was validated with the patient. Source: old records reviewed and nursing notes reviewed Medical History delivery delivered Vaginal hernia Surgical History History of tubal ligation Family History Family History Mother Uterine cancer Fibromyalgia Acute arthritis Anxiety PTSD (post-traumatic stress disorder) Depression Father Alcohol abuse Social History Social History Alcohol intake: never Tobacco use type: Cigarette Cigarette Packs Per Day: 1.5 Use of substances other than those prescribed or required for medical reasons: No Advance Directives: No Advance Directives Information Provided: No Physical Exam Vital Signs: Vital Signs: Last Vital Signs Temp 97.9 F 11/21/22 02:56 Pulse 82 04/15/23 02:56 Resp 22 H 11/21/22 02:56 BP 119/65 11/21/22 02:56 Pulse Ox 98 11/21/22 02:56 O2 Del Method Room Air 11/21/22 02:56 BMI result Body Mass Index 36.4 vss Appearance: Alert.? Oriented X3.? No acute distress.? Head: Normocephalic, atraumatic, no step-offs or deformities Eyes: Pupils equal, round and reactive to light.? ENT: Pharynx normal.? Neck: Normal inspection.? Neck supple.? CVS: Normal heart rate and rhythm.? Pulses normal.? Respiratory: No respiratory distress.? Breath sounds normal.? Abdomen: Soft and nontender.? Skin: Skin warm and dry.? Normal skin color.? Normal skin turgor.? Extremities: No lower extremity edema.? No calf ttp, negative Marquis bilaterally. 5/5 strength to bilateral upper and lower extremities Neuro: Oriented X 3.? No motor deficit.? No sensory deficit. CN 2-12 intact Course Reevaluation(s) Reevaluation #1: COVID, influenza negative. Chest x-ray unremarkable. Laboratory studies pending Time: 00:24 Reevaluation #2: CBC with chronically elevated white blood cell count. Chemistry unremarkable. Troponin negative. D-dimer elevated to 76 will obtain CTA. Sign-out to pending CTA. Patient will likely be discharged home a CTA is normal. Time: 01:17 Medications Administered Discontinued Medications Generic Name Dose Route Start Last Admin Trade Name Freq PRN Reason Stop Dose Admin Cefuroxime Axetil 500 mg 11/21/22 04:09 11/21/22 04:27 Cefuroxime Axetil 500 Mg Tablet PO 11/21/22 04:10 500 mg ONCE ONE Administration Iohexol 85 ml 11/21/22 02:43 11/21/22 02:44 Iohexol 350 Mg/Ml 100 Ml Infus..Btl IV 11/21/22 02:44 85 ml ONCE ONE Administration Medical Decision Making Medical Decision Making [facility] Narrative: 0022 42-year-old female presents with fatigue, malaise, dry cough, nausea, vomiting, substernal chest pressure and occasional shortness of breath with cough. Recently completed a Z-Dieter and prednisone. Physical exam benign. I suspect this is bronchitis as not improved. Unlikely pneumonia, PE, ACS, pneumothorax. I do not suspect metabolic derangements. Plan labs, imaging, viral testing. Differential Diagnosis Differential Diagnoses: The differential diagnosis associated with the presentation includes I suspect this is bronchitis as not improved. Unlikely pneumonia, PE, ACS, pneumothorax. I do not suspect metabolic derangements. Admission/Observation Consideration of admission/observation: Escalation of care including admission/observation considered Unlikely Lab Data MDM Lab Attestation statement: I reviewed the patient's lab results. 11/21/22 00:34 11/21/22 00:34 Labs: Lab Results 11/20/22 11/20/22 11/21/22 Range/Units 22:07 22:07 00:34 WBC (4.8-10.8) X10*3/uL RBC (4.20-5.50) X10*6/uL Hgb (12.0-16.0) g/dl Hct (37.0-47.0) % MCV (80.0-98.0) fL MCH (27.0-33.0) pg MCHC (31.0-35.0) g/dl RDW (11.0-16.0) % Plt Count (160-400) X10*3/uL MPV (9.4-12.3) fL Immature Gran % (Auto) (0.0-0.4) % Neut % (Auto) (45-73) % Lymph % (Auto) (20-40) % [place] % (Auto) (2-11) % Eos % (Auto) (0-4) % Baso % (Auto) (0-2) % Lymph # (Auto) (1.2-4.9) X10*3/uL [place] # (Auto) (0.1-1.2) X10*3/uL Eos # (Auto) (0.0-0.4) X10*3/uL Baso # (Auto) (0.0-0.2) X10*3/uL Abs Immat Gran (auto) (0.00-0.03) X10*3/uL Absolute Neuts (auto) (2.0-8.3) x10*3/uL Absolute Nucleated RBC (0.0-0.012) X10*3/uL Nucleated RBC % (auto) (0.0-0.2) /100WBC Smear Tech's Comments D-Dimer High Sensitivty 276 NG/ML Sodium (135-145) mmol/L Potassium (3.3-5.1) mmol/L Chloride (96-108) mmol/L Carbon Dioxide (22-29) mmol/L Anion Gap (12-20) BUN (9-16) mg/dL Creatinine (0.5-1.4) mg/dL Estim Creat Clear Calc Estimated GFR Random Glucose (60-115) mg/dL Calcium (8.4-10.2) mg/dL Total Bilirubin (0.0-1.0) mg/dL AST (5-31) U/L ALT (0-31) U/L Alkaline Phosphatase (39-117) U/L Troponin I High Sens (<3.5-17.0) ng/L Total Protein (6.5-8.0) g/dL Albumin (3.5-5.0) g/dL COVID-19 ([facility]) Negative (Negative) COVID-19 Clin Com See Note Influenza Type A ([facility]) Negative (Negative) Influenza Type B ([facility]EN) Negative (Negative) Influenza A & B Note See Note 11/21/22 11/21/22 11/21/22 Range/Units 00:34 00:34 00:34 WBC 20.9 H (4.8-10.8) X10*3/uL RBC 4.49 (4.20-5.50) X10*6/uL Hgb 12.5 (12.0-16.0) g/dl Hct 37.4 (37.0-47.0) % MCV 83.3 (80.0-98.0) fL MCH 27.8 (27.0-33.0) pg MCHC 33.4 (31.0-35.0) g/dl RDW 12.5 (11.0-16.0) % Plt Count 270 (160-400) X10*3/uL MPV 12.2 (9.4-12.3) fL Immature Gran % (Auto) 0.4 (0.0-0.4) % Neut % (Auto) 60.9 (45-73) % Lymph % (Auto) 30.5 (20-40) % [place] % (Auto) 5.7 (2-11) % Eos % (Auto) 1.9 (0-4) % Baso % (Auto) 0.6 (0-2) % Lymph # (Auto) 6.4 H (1.2-4.9) X10*3/uL [place] # (Auto) 1.2 (0.1-1.2) X10*3/uL Eos # (Auto) 0.4 (0.0-0.4) X10*3/uL Baso # (Auto) 0.1 (0.0-0.2) X10*3/uL Abs Immat Gran (auto) 0.08 H (0.00-0.03) X10*3/uL Absolute Neuts (auto) 12.7 H (2.0-8.3) x10*3/uL Absolute Nucleated RBC 0.000 (0.0-0.012) X10*3/uL Nucleated RBC % (auto) 0.0 (0.0-0.2) /100WBC Smear Tech's Comments VERIFIED D-Dimer High Sensitivty NG/ML Sodium 139 (135-145) mmol/L Potassium 4.1 (3.3-5.1) mmol/L Chloride 107 (96-108) mmol/L Carbon Dioxide 23 (22-29) mmol/L Anion Gap 13 (12-20) BUN 7 L (9-16) mg/dL Creatinine 0.78 (0.5-1.4) mg/dL Estim Creat Clear Calc 95.4 Estimated GFR > 60 Random Glucose 107 (60-115) mg/dL Calcium 9.4 (8.4-10.2) mg/dL Total Bilirubin 0.5 (0.0-1.0) mg/dL AST 15 (5-31) U/L ALT 18 (0-31) U/L Alkaline Phosphatase 118 H (39-117) U/L Troponin I High Sens < 2.7 (<3.5-17.0) ng/L Total Protein 6.7 (6.5-8.0) g/dL Albumin 4.0 (3.5-5.0) g/dL COVID-19 ([facility]) (Negative) COVID-19 Clin Com Influenza Type A ([facility]EN) (Negative) Influenza Type B ([facility]) (Negative) Influenza A & B Note Independent Interpretation I performed an independent interpretation of an: Plain X-Ray (Unremarkable) Radiology Impression Discussion of test interpretation with radiology: I have reviewed the radiologist's reading. External Record Review External record reviewed: Inpatient record, Office record, Outpatient record, Prior outpatient labs, Prior outpatient radiology, Primary care record and Outside ED record Prescription Management I considered prescription management with: Antibiotic Core Measures AMI core measures followed: Yes Measure exclusions: not indicated Critical Care Time Critical Care Time Critical Care Time: No Discharge Plan Discharge Clinical Impression: Bronchitis Patient Disposition: Home, Self-Care Instructions: Acute Bronchitis (ED), Acute Nausea and Vomiting (ED) Additional Instructions: Take your medications as prescribed. If you were prescribed antibiotics today, it is important that you take your medication to their entirety, do not skip any doses, do not finish them early. Follow-up with your primary care provider this week. Return to the emergency department with new or worsening symptoms. Such as fevers, chills, chest pain, shortness of breath, nausea, vomiting, dizziness, headache, vision changes, lethargy In case of emergency call 911 For bronchitis take doxycycline, prednisone and albuterol. Zofran is for nausea and vomiting. Prescriptions: New prednisone 20 mg tablet 40 mg PO DAILY 5 Days Qty: 10 0RF albuterol sulfate 90 mcg/actuation aerosol powdr breath activated 2 inh inhalation Q4-6H PRN (Reason: shortness of breath or wheezing) Qty: 1 0RF ondansetron 4 mg tablet,disintegrating 4 mg PO Q6H PRN (Reason: nausea and vomiting) Qty: 14 0RF cefuroxime axetil 500 mg tablet 500 mg PO BID Qty: 20 0RF No Action ondansetron 4 mg tablet,disintegrating 4 mg PO Q6-8H PRN (Reason: nausea and vomiting) Qty: 14 0RF lorazepam 0.5 mg tablet 0.5 mg PO BID PRN albuterol sulfate [ProAir HFA] 90 mcg/actuation HFA aerosol inhaler inhalation topiramate 25 mg tablet 12.5 mg PO loratadine [Claritin] 10 mg tablet 10 mg PO DAILY triamcinolone acetonide [Nasacort Allergy] 55 mcg aerosol,spray 1 spray intranasal DAILY Rx Instructions: administer into each nostril Referrals: Elba Fontana MD [Primary Care Provider] - 2 days Stand Alone Forms: Work/School Release Interventions: ED Discharge Assessment Last Done: 11/21/22 04:40 Discharge Date/Time: 11/21/22 04:42
--- NOTE | 2022-11-21 00:38 | MHC.EDTECH ---
PT Ekg done at 23:45 and signed. Ekg placed in Black EKG BIN
[2022-11-21 01:00] LABS: D Dimer High Sensitivity 276 NG/ML
[2022-11-21 01:04] LABS: Basophils Absolute Auto 0.1 X10*3/uL (0.0-0.2); Basophils Percent Auto 0.6 % (0-2); Eosinophils Absolute Auto 0.4 X10*3/uL (0.0-0.4); Eosinophils Percent Auto 1.9 % (0-4); Hematocrit 37.4 % (37.0-47.0); Hemoglobin 12.5 g/dl (12.0-16.0); Imm Gran Abs Auto 0.08 X10*3/uL (0.00-0.03); Imm Gran Pct Auto 0.4 % (0.0-0.4); Lymphocytes Absolute Auto 6.4 X10*3/uL (1.2-4.9); Lymphocytes Percent Auto 30.5 % (20-40); MANUAL DIFF FLAG SCAN; Mean Corpuscular HGB Conc 33.4 g/dl (31.0-35.0); Mean Corpuscular Hemoglobin 27.8 pg (27.0-33.0); Mean Corpuscular Volume 83.3 fL (80.0-98.0); Mean Platelet Volume 12.2 fL (9.4-12.3); Monocytes Absolute Auto 1.2 X10*3/uL (0.1-1.2); Monocytes Percent Auto 5.7 % (2-11); Neutrophils Absolute Auto 12.7 x10*3/uL (2.0-8.3); Neutrophils Percent Auto 60.9 % (45-73); Platelet Count 270 X10*3/uL (160-400); Red Blood Count 4.49 X10*6/uL (4.20-5.50); Red Cell Distribution Width 12.5 % (11.0-16.0); SCAN SMEAR FLAG 1; White Blood Count 20.9 X10*3/uL (4.8-10.8)
[2022-11-21 01:06] LABS: SLIDE REVIEW VERIFIED
[2022-11-21 01:07] LABS: Troponin-I High Sensitivity < 2.7 ng/L (<3.5-17.0)
[2022-11-21 01:08] LABS: Alanine Aminotransferase 18 U/L (0-31); Alkaline Phosphatase 118 U/L (39-117); Anion Gap 13 (12-20); Aspartate Amino Transferase 15 U/L (5-31); Bilirubin Total 0.5 mg/dL (0.0-1.0); Blood Urea Nitrogen 7 mg/dL (9-16); Calcium 9.4 mg/dL (8.4-10.2); Carbon Dioxide 23 mmol/L (22-29); Chloride 107 mmol/L (96-108); Creatinine Clr Calc Pharmacy 95.4; Estimated Glomerular Filt Rate > 60; Glucose Random 107 mg/dL (60-115); Potassium 4.1 mmol/L (3.3-5.1); Sodium 139 mmol/L (135-145); Total Protein 6.7 g/dL (6.5-8.0)
--- NOTE | 2022-11-21 01:36 | PC.NURSE ---
Pt requested to use the bathroom, ambulated upright without assistance, accompanied by RN. No increased work of breathing observed with ambulation.
--- NOTE | 2022-11-21 01:43 | PC.NURSE ---
Addendum entered by Michelle Cronin RN 11/21/22 01:44: Established at 0036 hours Original Note: 20G IV established by PA. No pain or signs of infiltration. Flushes well.
[2022-11-21] MEDS: iohexoL 350 MG/ML 100 ML INFUS..BTL 85 ML IV (02:44)
[2022-11-21 02:56] VITALS: BP 119/65; PULSE 82; RESP 22; TEMP 36.6; O2SAT 98
== END 2022-11-21 04:42 | disposition home or self-care (01) ==
PROVIDERS: Physician Assistant; Emergency Provider Internal Medicine; PCP Internal Medicine
DX: J40 Bronchitis, not specified as acute or chronic (principal); R06.02 Shortness of breath; Z79.899 Other long term (current) drug therapy; Z20.822 Contact with and (suspected) exposure to COVID-19
CPT/HCPCS: 36415; 71046; 71275; 80053; 84484; 85025; 85379; 87502; 87635; 93005; 99284; Q9967

== ENCOUNTER 2023-03-31 11:13 | Outpatient (AMB) | payer OTHER, SELFPAY ==
--- NOTE | 2023-03-31 11:16 | AM.OFFWIN_ITS ---
Intake Vital Signs 03/31/23 11:17 Height 5 ft 1 in Weight 193 lb BMI 36.5 BP 104/70 Blood Pressure Location Rt brachial Position Sitting Pulse 107 H Pulse Source Pulse Oximeter Temp 96.2 F L Temp Source Temporal Artery Scan Pulse Oximetry (%) 97 Intake Visit Reasons: EP, Cough, congestion (masked) Intake Note: Pt is here c/o persistent cough and chest congestion. Pt states she has a history of bronchitis and feels like she has it again. Patient Tobacco Use Status: Never used Tobacco Allergies amoxicillin [AMOXICILLIN] Allergy (Severe, Verified 04/02/23 17:12) RASH, SOB citalopram Allergy (Verified 04/02/23 17:12) Rash Penicillins Allergy (Verified 04/02/23 17:12) Rash sulfamethoxazole [From Sulfamethoxazole-Trimethoprim] Allergy (Verified 04/02/23 17:12) Rash trimethoprim [From Sulfamethoxazole-Trimethoprim] Allergy (Verified 04/02/23 17:12) Rash From ZOLOFT Allergy (Severe, Uncoded 04/02/23 17:12) CARDIAC ARREST SOME ANTIBITOCS Allergy (Mild, Uncoded 04/02/23 17:12) HIVES Medication List - Last Reconciled 04/02/23 by Christopher Jones MD albuterol sulfate 90 mcg/actuation 2 inhalations inhalation Q4-6H PRN albuterol sulfate 90 mcg/actuation (ProAir HFA) inhalation azithromycin take 500 mg today (day 1), then 250 mg for 4 days (days 2-5) PO fluticasone furoate-vilanterol 200-25 mcg/dose (Breo Ellipta) 1 ea inhalation DAILY loratadine (Claritin) 10 mg PO DAILY lorazepam 0.5 mg PO BID PRN topiramate 12.5 mg PO triamcinolone acetonide (Nasacort Allergy) 1 spray intranasal DAILY Do you need a note to return to daycare/school/sports/work: No HPI EP, Cough, congestion (masked) HPI Details Patient presents for a sick visit. Reporting symptoms of sinus congestion, sore throat and difficulty swallowing. Low-grade fever. No family member is sick. No recent travel. Patient reports symptoms of malaise and fatigue. [facility] Medical History delivery delivered Vaginal hernia Surgical History History of tubal ligation Family History Mother Uterine cancer Fibromyalgia Acute arthritis Anxiety PTSD (post-traumatic stress disorder) Depression Father Alcohol abuse Social History Alcohol intake: never Patient Tobacco Use Status: Never used Tobacco Tobacco use type: Cigarette Cigarette Packs Per Day: 1.5 Physical Exam Vital Signs: Last Vital Signs Temp 96.2 F L 03/31/23 11:17 Pulse 107 H 03/31/23 11:17 BP 104/70 03/31/23 11:17 Pulse Ox 97 03/31/23 11:17 BMI result Body Mass Index 36.5 Const General: cooperative and healthy appearing Nutritional Appearance: well nourished Orientation/consciousness: patient oriented x3 Limitations: no limitations HEENT Head: Yes normal to inspection Eyes General: appearance normal, both eyes and all related structures Neck Neck: Yes normal visual inspection Chest Chest palpation & inspection: normal palpation of entire chest wall Resp Effort & Inspection: normal respiratory effort Neuro General: patient oriented x3 Assessment & Plan Assessment & Plan (1) Upper respiratory tract infection: Code(s): J06.9 - Acute upper respiratory infection, unspecified Plan: Antibiotics ordered. Increase fluid intake. Tylenol for aches and pains. If symptoms worsen, follow-up here for a recheck. Medications: New azithromycin take 500 mg today (day 1), then 250 mg for 4 days (days 2-5) PO 6 tabs 0RF Coding Level of Care Code Est Pt Level 3 (68140) Diagnoses Upper respiratory tract infection J06.9
[2023-03-31 11:17] VITALS: BP 104/70; PULSE 107; TEMP 35.7; O2SAT 97; BMI 36.5
== END 2023-03-31 11:56 | disposition home or self-care (01) ==
LOC: HO.HMGWI 11:13
PROVIDERS: PCP Internal Medicine
DX: J06.9 Acute upper respiratory infection, unspecified (principal)
CPT/HCPCS: 99213

== ENCOUNTER 2023-04-08 10:14 | Outpatient (AMB) | payer OTHER, SELFPAY ==
--- NOTE | 2023-04-08 10:19 | AM.OFFWIN_ITS ---
Intake Vital Signs 04/08/23 10:20 Height 5 ft 1 in Weight 193 lb BMI 36.5 BP 100/60 Blood Pressure Location Rt brachial Position Sitting Pulse 90 Pulse Source Pulse Oximeter Temp 97.2 F Temp Source Temporal Artery Scan Pulse Oximetry (%) 97 Oxygen Delivery Method Room Air Intake Visit Reasons: EP Cough, Congestion (Masked) Intake Note: Pt is here c/o bad cough and chest congestion. Pt states she is almost done with her antibiotics and still feels the same. Patient Tobacco Use Status: Never used Tobacco Allergies amoxicillin [AMOXICILLIN] Allergy (Severe, Verified 04/08/23 10:21) RASH, SOB citalopram Allergy (Verified 04/08/23 10:21) Rash Penicillins Allergy (Verified 04/08/23 10:21) Rash sulfamethoxazole [From Sulfamethoxazole-Trimethoprim] Allergy (Verified 04/08/23 10:21) Rash trimethoprim [From Sulfamethoxazole-Trimethoprim] Allergy (Verified 04/08/23 10:21) Rash From ZOLOFT Allergy (Severe, Uncoded 04/08/23 10:21) CARDIAC ARREST SOME ANTIBITOCS Allergy (Mild, Uncoded 04/08/23 10:21) HIVES Do you need a note to return to daycare/school/sports/work: Yes HPI HPI Comments History of Present Illness Details 42-year-old female history of COPD that presents for cough congestion shortness of breath X2 weeks Patient was seen and evaluated last week prescribed azithromycin. She has taken without much relief. She states she is prone to pneumonia and is concerned several times has required multiple rounds of azithromycin. [facility] Medical History delivery delivered Vaginal hernia Surgical History History of tubal ligation Family History Mother Uterine cancer Fibromyalgia Acute arthritis Anxiety PTSD (post-traumatic stress disorder) Depression Father Alcohol abuse Social History Alcohol intake: never Patient Tobacco Use Status: Never used Tobacco Tobacco use type: Cigarette Cigarette Packs Per Day: 1.5 Review of Systems Const All systems reviewed & are unremarkable except as noted in HPI and below Reports fatigue, Reports fever(s), Denies headache(s) and Denies weakness Eyes Reports no additional complaints ENT Denies headache(s) and Reports nasal congestion Card Reports no additional complaints, Denies chest pain, Denies leg edema and Denies dyspnea Resp Reports chest congestion, Reports cough, Denies dyspnea and Reports wheezing GI Denies abdominal pain, Denies nausea and Denies vomiting Denies urinary frequency and Denies dysuria Musc Reports no additional complaints Neuro Denies headache(s) and Denies weakness Psych Reports no additional complaints Endo Reports fatigue Aller/Immun Reports wheezing Physical Exam Vital Signs: Last Vital Signs Temp 97.2 F 04/08/23 10:20 Pulse 90 04/08/23 10:20 BP 100/60 04/08/23 10:20 Pulse Ox 97 04/08/23 10:20 Oxygen Delivery Method Room Air 04/08/23 10:20 BMI result Body Mass Index 36.5 HEENT Other: nasal congestion Resp Other: faint expiratory wheeze Assessment & Plan Assessment & Plan (1) Upper respiratory tract infection: Code(s): J06.9 - Acute upper respiratory infection, unspecified Plan VSS. Exam notable for faint expiratory wheeze nasal congestion cough. Patient likely suffering from upper respiratory tract infection versus sinus infection. Failed azithromycin. Will prescribe levofloxacin Discharge instructions, follow up and treatment are discussed with patient in my usual fashion. Alternatives in treatment are also discussed. The patient will return for worsening symptoms or as needed. Advised that any labs/imaging ordered will be followed up on and contact made if further treatment needed. Counseled that patient's condition may require further evaluation and/or treatment. Symptoms of concern for worsening disorder discussed in detail in my customary manner. Patient does verbalize understanding of the plan, there are no apparent barriers to communication. The patient is given the opportunity to ask questions and have them answered to his/her satisfaction Medications: New levofloxacin 500 mg PO DAILY 7 days 7 tabs 0RF Discontinued azithromycin Discontinued Reason: Doctor's Order take 500 mg today (day 1), then 250 mg for 4 days (days 2-5) PO 6 tabs 0RF Coding Level of Care Code Est Pt Level 3 (61055) Diagnoses Upper respiratory tract infection J06.9
[2023-04-08 10:20] VITALS: BP 100/60; PULSE 90; TEMP 36.2; O2SAT 97; BMI 36.5
== END 2023-04-08 10:56 | disposition home or self-care (01) ==
PROVIDERS: PCP Internal Medicine; Visit Provider Physician Assistant
DX: J06.9 Acute upper respiratory infection, unspecified (principal)
CPT/HCPCS: 99213

== ENCOUNTER 2024-07-09 18:56 | Emergency (ER) | payer OTHER, SELFPAY ==
--- NOTE | 2024-07-09 | ECG_ITS ---
Test Reason : SYNCOPE Blood Pressure : / mmHG Vent. Rate : 089 BPM Atrial Rate : 089 BPM P-R Int : 140 ms QRS Dur : 100 ms QT Int : 364 ms P-R-T Axes : 054 023 012 degrees QTc Int : 442 ms Normal sinus rhythm Incomplete right bundle branch block Borderline ECG When compared with ECG of 20-NOV-2022 23:45, No significant change was found Referred By: Generic ED Physician Electronically Signed By:Beto Bird
--- NOTE | 2024-07-09 19:01 | ED_ITS ---
HPI - General Adult General Chief complaint: Syncope Stated complaint: VOMITING SYNCOPAL EPISODE Time Seen by Provider: 07/09/24 19:01 Source: patient Mode of arrival: EMS Limitations: no limitations History of Present Illness ED Provider: HPI narrative: Patient otherwise healthy been nauseated vomiting all day today with headache and earache feel likes having migraine headache no fever no chills no diarrhea no significant abdominal pain patient passed out after vomiting history of same in the past no fever no chills patient has had similar episodes of syncope in the past with detailed workup including cardiology was negative Related Data Home Medications ?Medication ?Instructions ?Recorded ?Confirmed albuterol sulfate 90 mcg/actuation inhalation 03/17/22 03/17/22 aerosol inhaler (ProAir HFA) loratadine 10 mg tablet (Claritin) 10 mg PO DAILY 03/17/22 03/17/22 lorazepam 0.5 mg tablet 0.5 mg PO BID PRN 03/17/22 03/17/22 topiramate 25 mg tablet 12.5 mg PO 03/17/22 03/17/22 triamcinolone acetonide 55 mcg 1 spray intranasal DAILY 03/17/22 03/17/22 nasal spray aerosol (Nasacort Allergy) fluticasone furoate 200 1 ea inhalation DAILY 03/31/23 mcg-vilanterol 25 mcg/dose inhalation powder (Breo Ellipta) spironolactone 25 mg tablet 25 mg PO DAILY 04/08/23 Previous Rx's ?Medication ?Instructions ?Recorded albuterol sulfate 90 mcg/actuation 2 inh inhalation Q4-6H PRN 11/21/22 breath activated powder inhaler shortness of breath or wheezing #1 ea levofloxacin 500 mg tablet 500 mg PO DAILY 7 days #7 tabs 04/08/23 rhpjpdcwhu-jnetguvqzpwan-jrmharub 1 tab PO Q6H PRN haeadace #20 tabs 07/09/24 50 mg-325 mg-40 mg tablet ondansetron 4 mg disintegrating 4 mg PO Q6-8H PRN nausea and 07/09/24 tablet vomiting #7 tabs Allergies Allergy/AdvReac Type Severity Reaction Status Date / Time amoxicillin [AMOXICILLIN] Allergy Severe RASH, SOB Verified 07/09/24 19:14 citalopram Allergy Rash Verified 07/09/24 19:14 Penicillins Allergy Rash Verified 07/09/24 19:14 sulfamethoxazole Allergy Rash Verified 07/09/24 19:14 [From Sulfamethoxazole-Trimethoprim] trimethoprim Allergy Rash Verified 07/09/24 19:14 [From Sulfamethoxazole-Trimethoprim] From [place] Allergy Severe CARDIAC Uncoded 07/09/24 19:14 ARREST Some antibiotics Allergy Hives Uncoded 07/09/24 19:15 Review of Systems 2 Review of Systems: Yes all other systems are reviewed and are negative [facility] Past Medical History Medical History delivery delivered Vaginal hernia Surgical History History of tubal ligation Family History Family History Mother Uterine cancer Fibromyalgia Acute arthritis Anxiety PTSD (post-traumatic stress disorder) Depression Father Alcohol abuse Social History Social History Unable to assess alcohol history related to: Unknown Alcohol intake: never Patient Tobacco Use Status: Never used Tobacco Tobacco use type: Cigarette Cigarette Packs Per Day: 1.5 Smoked in Last 30 Days: No Use of substances other than those prescribed or required for medical reasons: Unknown Advance Directives: No Advance Directives Information Provided: No Patient : No Physical Exam ED Vital Signs: Vital Signs - 24 hr 07/09/24 19:10 07/09/24 21:00 07/09/24 22:00 Temperature 98.2 F 98.0 F Pulse Rate 97 88 81 Respiratory Rate 12 16 16 Blood Pressure 125/72 126/72 Pulse Oximetry 97 97 Oxygen Delivery Method Room Air Room Air 07/09/24 22:04 07/09/24 23:27 Temperature 98.2 F 98 F Pulse Rate 88 81 Respiratory Rate 16 16 Blood Pressure 125/72 126/72 Pulse Oximetry 97 Oxygen Delivery Method Room Air BMI result Body Mass Index 37.4 Appearance: Alert. Oriented X3. No acute distress. Eyes: No pallor or icterus ENT: Pharynx normal. Oral Mucosa moist Neck: Normal inspection. Neck supple. CVS: Normal heart rate and rhythm. Pulses normal. Respiratory: No respiratory distress. Equal air entry bilateral, no wheezing/rales/rhonchi Abdomen: Soft and nontender. Bowel sounds are present, no mass palpable, no CVA tenderness Skin: Skin warm and dry. Normal skin color. Normal skin turgor. Extremities: No lower extremity edema. No calf tenderness Neuro: Oriented X 3. No motor deficit. Medications Administered Discontinued Medications Generic Name Dose Route Start Last Admin Trade Name Libanq PRN Reason Stop Dose Admin Albuterol Sulfate 2.5 mg/ 0 mg 07/09/24 20:34 07/09/24 20:53 Albuterol/Ipratropium 3 ml INHALE 07/09/24 20:35 1 dose ONCE ONE Administration Sodium Chloride 1,000 mls @ 999 mls/hr 07/09/24 20:34 07/09/24 22:04 Ns IV 07/09/24 21:34 Infused .Q1H1M ONE Infusion Ketorolac Tromethamine 30 mg 07/09/24 20:41 07/09/24 21:03 Ketorolac Tromethamine 30 Mg/Ml Vial IVPUSH 07/09/24 20:42 30 mg ONCE ONE Administration Medical Decision Making Medical Decision Making [facility] Narrative: Patient with frequent episodes of vomiting with migraine headache with syncope episode in the past with detailed workup negative improved after IV hydration has a leukocytosis without left shift likely from volume contraction with similar leukocytosis in the past taking p.o. fluids now will discharge patient home advised to follow with PCP/Neuro Differential Diagnosis Differential Diagnoses: The differential diagnosis associated with the presentation includes Lab Data [facility] Lab Attestation statement: I reviewed the patient's lab results. 07/09/24 19:41 07/09/24 19:41 Labs: Lab Results 07/09/24 07/09/24 Range/Units 19:41 19:54 WBC 18.2 H (4.8-10.8) X10*3/uL RBC 4.40 (4.20-5.50) X10*6/uL Hgb 12.4 (12.0-16.0) g/dl Hct 37.2 (37.0-47.0) % MCV 84.5 (80.0-98.0) fL MCH 28.2 (27.0-33.0) pg MCHC 33.3 (31.0-35.0) g/dl RDW 12.1 (11.0-16.0) % Plt Count 305 (160-400) X10*3/uL MPV 11.6 (9.4-12.3) fL Immature Gran % (Auto) 0.3 (0.0-0.4) % Neut % (Auto) 66.0 (45-73) % Lymph % (Auto) 25.5 (20-40) % [place] % (Auto) 6.2 (2-11) % Eos % (Auto) 1.6 (0-4) % Baso % (Auto) 0.4 (0-2) % Lymph # (Auto) 4.6 (1.2-4.9) X10*3/uL [place] # (Auto) 1.1 (0.1-1.2) X10*3/uL Eos # (Auto) 0.3 (0.0-0.4) X10*3/uL Baso # (Auto) 0.1 (0.0-0.2) X10*3/uL Abs Immat Gran (auto) 0.05 H (0.00-0.03) X10*3/uL Absolute Neuts (auto) 12.0 H (2.0-8.3) x10*3/uL Absolute Nucleated RBC 0.000 (0.0-0.012) X10*3/uL Nucleated RBC % (auto) 0.0 (0.0-0.2) /100WBC PT 11.7 (10.9-12.4) SEC INR 1.0 (0.9-1.1) APTT 31.9 (26.0-36.8) SEC Sodium 139 (135-145) mmol/L Potassium 3.6 (3.3-5.1) mmol/L Chloride 108 (96-108) mmol/L Carbon Dioxide 24 (22-29) mmol/L Anion Gap 11 L (12-20) BUN 7 L (9-16) mg/dL Creatinine 0.72 (0.5-1.4) mg/dL Estim Creat Clear Calc 102.7 Estimated GFR > 60 Random Glucose 110 (60-115) mg/dL Calcium 9.7 (8.4-10.2) mg/dL Total Bilirubin 0.3 (0.0-1.0) mg/dL Direct Bilirubin 0.1 (0.0-0.5) mg/dL AST 21 (5-31) U/L ALT 25 (0-31) U/L Alkaline Phosphatase 93 (39-117) U/L Troponin I High Sens < 2.7 (<3.5-17.0) ng/L Total Protein 7.0 (6.5-8.0) g/dL Albumin 4.0 (3.5-5.0) g/dL Lipase 13 (8-78) U/L Urine Color Yellow Urine Appearance Clear Urine pH 7.5 (5.0-9.0) Ur Specific [place] <= 1.005 (1.005-1.025) Urine Protein Negative (Neg-Trace) mg/dL Urine Glucose (UA) Negative (Negative) mg/dL Urine Ketones Negative (Negative) mg/dL Urine Blood Negative (Negative) Urine Nitrite Negative (Negative) Ur Leukocyte Esterase Negative (Negative) Ethyl Alcohol < 10 mg/dL Discharge Plan Discharge Clinical Impression: Headache, migraine, Vasovagal syncope Patient Disposition: Home, Self-Care Instructions: Migraine Headache (ED), Syncope (ED) Additional Instructions: Take medication for nausea as prescribed You likely have vasovagal episodes causing the passing out episode which is not life-threatening Follow up with your PCP/neurologist if syncope episode continues Prescriptions: New ytglffetcg-adihqiheanwuv-ukao 50-325-40 mg tablet 1 tab PO Q6H PRN (Reason: haeadace) Qty: 20 0RF ondansetron 4 mg tablet,disintegrating 4 mg PO Q6-8H PRN (Reason: nausea and vomiting) Qty: 7 0RF No Action albuterol sulfate 90 mcg/actuation aerosol powdr breath activated 2 inh inhalation Q4-6H PRN (Reason: shortness of breath or wheezing) Qty: 1 0RF spironolactone 25 mg tablet 25 mg PO DAILY levofloxacin 500 mg tablet 500 mg PO DAILY 7 Days Qty: 7 0RF fluticasone furoate-vilanterol [Breo Ellipta] 200-25 mcg/dose blister with device 1 ea inhalation DAILY lorazepam 0.5 mg tablet 0.5 mg PO BID PRN albuterol sulfate [ProAir HFA] 90 mcg/actuation HFA aerosol inhaler inhalation topiramate 25 mg tablet 12.5 mg PO loratadine [Claritin] 10 mg tablet 10 mg PO DAILY triamcinolone acetonide [Nasacort Allergy] 55 mcg aerosol,spray 1 spray intranasal DAILY Rx Instructions: administer into each nostril Referrals: Brie Morales MD [Physician] - 2 weeks Interventions: ED Discharge Assessment Last Done: 07/09/24 23:27 Discharge Date/Time: 07/09/24 23:27 Print Language: Icelandic
[2024-07-09 19:10] VITALS: BP 125/72; BP 149/74; PULSE 120; PULSE 97; RESP 12; TEMP 36.8; O2SAT 97; O2SAT 99; BMI 37.4
[2024-07-09 19:49] LABS: MANUAL DIFF FLAG NO
[2024-07-09 19:50] LABS: Basophils Absolute Auto 0.1 X10*3/uL (0.0-0.2); Basophils Percent Auto 0.4 % (0-2); Eosinophils Absolute Auto 0.3 X10*3/uL (0.0-0.4); Eosinophils Percent Auto 1.6 % (0-4); Hematocrit 37.2 % (37.0-47.0); Hemoglobin 12.4 g/dl (12.0-16.0); Imm Gran Abs Auto 0.05 X10*3/uL (0.00-0.03); Imm Gran Pct Auto 0.3 % (0.0-0.4); Lymphocytes Absolute Auto 4.6 X10*3/uL (1.2-4.9); Lymphocytes Percent Auto 25.5 % (20-40); Mean Corpuscular HGB Conc 33.3 g/dl (31.0-35.0); Mean Corpuscular Hemoglobin 28.2 pg (27.0-33.0); Mean Corpuscular Volume 84.5 fL (80.0-98.0); Mean Platelet Volume 11.6 fL (9.4-12.3); Monocytes Absolute Auto 1.1 X10*3/uL (0.1-1.2); Monocytes Percent Auto 6.2 % (2-11); Platelet Count 305 X10*3/uL (160-400); Red Cell Distribution Width 12.1 % (11.0-16.0); White Blood Count 18.2 X10*3/uL (4.8-10.8)
[2024-07-09 20:02] LABS: Appearance Urine Clear; Color Urine Yellow; Glucose Urine UA Negative (Negative); Leukocyte Esterase Urine Negative (Negative); Nitrite Urine Negative (Negative); PH 7.5 (5.0-9.0); Specific Gravity - Urine <= 1.005 (1.005-1.025); Urine Blood Negative (Negative); Urine Ketones Negative (Negative); Urine Protein Negative (Neg-Trace)
[2024-07-09 20:02] LABS: Prothrombin Time 11.7 SEC (10.9-12.4)
[2024-07-09 20:05] LABS: Partial Thromboplastin Time 31.9 SEC (26.0-36.8)
[2024-07-09 20:10] LABS: Alanine Aminotransferase 25 U/L (0-31); Alkaline Phosphatase 93 U/L (39-117); Anion Gap 11 (12-20); Aspartate Amino Transferase 21 U/L (5-31); Bilirubin Direct 0.1 mg/dL (0.0-0.5); Bilirubin Total 0.3 mg/dL (0.0-1.0); Blood Urea Nitrogen 7 mg/dL (9-16); Calcium 9.7 mg/dL (8.4-10.2); Carbon Dioxide 24 mmol/L (22-29); Chloride 108 mmol/L (96-108); Creatinine Clr Calc Pharmacy 102.7; Estimated Glomerular Filt Rate > 60; Ethanol < 10 mg/dL; Glucose Random 110 mg/dL (60-115); Lipase 13 U/L (8-78); Potassium 3.6 mmol/L (3.3-5.1); Sodium 139 mmol/L (135-145)
[2024-07-09 20:29] LABS: Troponin-I High Sensitivity < 2.7 ng/L (<3.5-17.0)
[2024-07-09] MEDS: Albuterol Sulfate 2.5 MG, Albuterol/Iprat 2.5/0.5MG 3 ML 3 ML INHALE (20:53)
[2024-07-09 21:00] VITALS: PULSE 88; RESP 16; O2SAT 98
[2024-07-09] MEDS: Ketorolac Tromethamine 30 MG/ML VIAL IVPUSH (21:03)
[2024-07-09] MEDS: 0.9 % Sodium Chloride 1,000 ML 999 ML IV (21:03)
[2024-07-09 22:00] VITALS: BP 126/72; PULSE 81; RESP 16; TEMP 36.7; O2SAT 97
[2024-07-09 22:04] VITALS: BP 125/72; PULSE 88; RESP 16; TEMP 36.8
[2024-07-09 23:27] VITALS: BP 126/72; PULSE 81; RESP 16; TEMP 36.6; O2SAT 97
== END 2024-07-09 23:27 | disposition home or self-care (01) ==
PROVIDERS: Emergency Provider Internal Medicine; PCP Internal Medicine
DX: R55 Syncope and collapse (principal); G43.909 Migraine, unspecified, not intractable, without status migrainosus; R11.2 Nausea with vomiting, unspecified; H92.02 Otalgia, left ear; I45.10 Unspecified right bundle-branch block; R94.31 Abnormal electrocardiogram [ECG] [EKG]; F17.210 Nicotine dependence, cigarettes, uncomplicated; Z51.81 Encounter for therapeutic drug level monitoring; Z79.899 Other long term (current) drug therapy
CPT/HCPCS: 36415; 80053; 80307; 81003; 82248; 83690; 84484; 85025; 85610; 85730; 93005; 94640; 96361; 96374; 99285; J1885

== ENCOUNTER → 2024-07-09 19:26 | Outpatient (BNV) | payer OTHER, SELFPAY | PROVIDERS: Emergency Provider Internal Medicine; PCP Internal Medicine; Visit Provider Internal Medicine Cardiovascular Disease | DX: R55 Syncope and collapse (principal) | CPT/HCPCS: 93010 ==